=== PATIENT | female | born 1955 | race African-American/Black ===

== ENCOUNTER 2017-02-24 11:59 | Emergency (ER) | payer OTHER ==
[~2017-02-24] VITALS: Ht 162.6 cm; Wt 75.0 kg
[~2017-02-24 11:59] MED LIST: DIVA500T PO
[2017-02-24 12:01] VITALS: BP 129/76
== END 2017-02-24 12:53 | disposition left against medical advice (07) ==
LOC: ER 12:48
DX: R41.82 Altered mental status, unspecified (principal); Z53.21 Procedure and treatment not carried out due to patient leaving prior to being seen by health care provider

== ENCOUNTER 2018-10-17 21:26 | Inpatient (IN) | payer BC, OTHER ==
[~2018-10-17] VITALS: Ht 160 cm; Wt 73.5 kg
[~2018-10-17 21:26] MED LIST changes: +DIVA-75 PO; -DIVA500T PO
[2018-10-17] MEDS ORDERED: LORAZEPAM 2MG/ML CPJ IV ONE ×2 (21:45→23:15)
[2018-10-17 22:00] LABS: BASOPHILS % 1.1 % (0.0-2.0); EOSINOPHILS % 0.4 % (0.0-5.0); HEMATOCRIT. 37.3 % (36.0-48.0); HEMOGLOBIN. 12.2 g/dL (12.0-16.0); LYMPHOCYTES % 38.1 % (20.0-50.0); MEAN CORPUSCULAR HEMOGLOBIN 29.7 pg (28.0-32.0); MEAN CORPUSCULAR VOLUME 90.4 fL (81.0-99.0); MEAN PLATELET VOLUME 8.3 fl (7.4-10.4); MONOCYTES % 9.4 % (2.0-8.0); PLATELET 240 x1000/uL (130-400); RED BLOOD CELL COUNT 4.12 mill/uL (4.2-5.4); RED CELL DISTRIBUTION WIDTH 14.3 % (11.6-14.6)
[2018-10-17 22:05] LABS: CHLORIDE 104 mEq/L (98-107)
[2018-10-17 22:10] LABS: ETHANOL BLOOD < 10 mg/dL
[2018-10-17 22:16] LABS: CARBAMAZEPINE < 0.5 ug/mL (4-12)
[2018-10-17 22:46] LABS: CLARITY URINE CLEAR (CLEAR); COLOR URINE YELLOW (YELLOW); KETONES URINE 1+ (NEGATIVE); LEUKOCYTE ESTERASE URINE NEGATIVE (NEGATIVE); NITRITE URINE NEGATIVE (NEGATIVE); OCCULT BLOOD URINE NEGATIVE (NEGATIVE); PH URINE 6.5 (4.5-8.0); PROTEIN URINE NEGATIVE (NEGATIVE); SPECIFIC GRAVITY URINE 1.019 (1.005-1.030)
[2018-10-17 22:55] LABS: *AMPHETAMINES SCREEN URINE NEGATIVE (NEGATIVE); *BARBITURATES SCREEN URINE NEGATIVE (NEGATIVE); *BENZODIAZEPINES SCREEN URINE NEGATIVE (NEGATIVE); *COCAINE SCREEN URINE NEGATIVE (NEGATIVE); METHADONE URINE SCREEN NEGATIVE (NEGATIVE); OPIATES URINE SCREEN NEGATIVE (NEGATIVE); PHENCYCLIDINE URINE SCREEN NEGATIVE (NEGATIVE)
[2018-10-17 22:56] LABS: CANNABINOID URINE SCREEN NEGATIVE (NEGATIVE)
[2018-10-18] MEDS ORDERED: IPRATROPIUM/ALBUTEROL 0.5-3(2.5)MG/3ML NEB NEB PRN (05:15)
[2018-10-18] MEDS ORDERED: HYDROCODONE/ACETAMINOPHEN 5/325MG TABLET PO PRN (05:15)
[2018-10-18] MEDS ORDERED: LORAZEPAM 2MG/ML CPJ IV PRN (05:15)
[2018-10-18] MEDS ORDERED: ONDANSETRON HCL 4MG/2ML INJ IV PRN (05:15)
[2018-10-18] MEDS ORDERED: CLONIDINE 0.1MG TABLET PO PRN (05:15)
[2018-10-18] MEDS ORDERED: MAGNESIUM/ALUMINUM HYDROXIDE/SIMETHICONE 30ML UDC PO PRN (05:15)
[2018-10-18] MEDS ORDERED: GUAIFENESIN 200MG/10ML SUGAR FREE UDC PO PRN (05:15)
[2018-10-18] MEDS ORDERED: ACETAMINOPHEN 325MG TABLET PO PRN (05:15)
[2018-10-18] MEDS ORDERED: DIPHENHYDRAMINE 50MG/ML VIAL IV PRN (05:15)
[2018-10-18] MEDS ORDERED: MORPHINE SULFATE 2 MG/ML CPJ (NOT FOR IM USE) IV PRN (05:15)
[2018-10-18] MEDS ORDERED: NA PHOS,M-B/NA PHOS,DI-BA ENEMA 118ML PR PRN (05:15)
[2018-10-18] MEDS ORDERED: DOCUSATE SODIUM 100MG CAPSULE PO PRN (05:15)
[2018-10-18 05:57] LABS: CHLORIDE 105 mEq/L (98-107)
[2018-10-18 09:40] VITALS: BP 121/62
[2018-10-18] MEDS: ENOXAPARIN 40MG/0.4ML SYR SUBCUT SCH (10:00)
[2018-10-18 12:00] VITALS: BP 155/74
[2018-10-18 16:00] VITALS: BP 162/87
[2018-10-18 20:00] VITALS: BP 141/76
[2018-10-18] MEDS ORDERED: FOLIC ACID 1 MG, THIAMINE HCL 100 MG, MVI, ADULT NO.1 10 ML in DEXTROSE 5% WATER 1,000 ML IV SCH ×4 (21:30)
[2018-10-18] MEDS: VALPROIC ACID 250MG CAPSULE PO SCH (22:55)
[2018-10-19] VITALS: BP 133/74
[2018-10-19 04:00] VITALS: BP 162/67
[2018-10-19] MEDS: VALPROIC ACID 250MG CAPSULE PO SCH ×3 (06:34→21:46)
[2018-10-19 07:32] LABS: BASOPHILS % 0.6 % (0.0-2.0); HEMATOCRIT. 37.8 % (36.0-48.0); HEMOGLOBIN. 12.2 g/dL (12.0-16.0); LYMPHOCYTES % 41.3 % (20.0-50.0); MEAN CORPUSCULAR HEMOGLOBIN 29.5 pg (28.0-32.0); MEAN PLATELET VOLUME 8.6 fl (7.4-10.4); MONOCYTES % 7.6 % (2.0-8.0); NEUTROPHILS % 49.5 % (40.0-76.0); PLATELET 217 x1000/uL (130-400); RED BLOOD CELL COUNT 4.15 mill/uL (4.2-5.4); RED CELL DISTRIBUTION WIDTH 14.1 % (11.6-14.6)
[2018-10-19 07:36] LABS: CHLORIDE 105 mEq/L (98-107)
[2018-10-19 07:48] LABS: T4 FREE 1.01 ng/dL (0.76-1.46)
[2018-10-19 07:49] LABS: HDL CHOLESTEROL 66 mg/dL (40-59); LDL CHOLESTEROL 76 mg/dL (5-100)
[2018-10-19] MEDS: ENOXAPARIN 40MG/0.4ML SYR SUBCUT SCH (09:54)
[2018-10-19 12:00] VITALS: BP 138/82
[2018-10-19 16:10] VITALS: BP 139/72
[2018-10-19 20:00] VITALS: BP 157/67
[2018-10-20 00:36] VITALS: BP 134/68
[2018-10-20 04:00] VITALS: BP 135/73
[2018-10-20] MEDS: VALPROIC ACID 250MG CAPSULE PO SCH ×2 (06:28→14:30)
[2018-10-20 08:00] VITALS: BP 131/69
[2018-10-20] MEDS: ENOXAPARIN 40MG/0.4ML SYR SUBCUT SCH (09:07)
[2018-10-20 12:00] VITALS: BP 130/73
[2018-10-20 14:11] VITALS: BP 130/73
== END 2018-10-20 15:27 | disposition home or self-care (01) | DRG 101 ==
LOC: ER 22:25 → EDBEDREQ 23:15 → 5WST 10-18 02:12 → EDBEDREQ 10-18 02:15 → EDBEDREQTM 10-18 02:15 → EDBEDREQDT 10-18 02:15 → ENRESERV 10-18 08:52
PROVIDERS: ADMIT Internal Medicine; ATTEND Internal Medicine
DX: G40.89 Other seizures (principal); E86.0 Dehydration; F10.20 Alcohol dependence, uncomplicated; I10 Essential (primary) hypertension; Z91.19 Patient's noncompliance with other medical treatment and regimen; I69.398 Other sequelae of cerebral infarction; Z79.899 Other long term (current) drug therapy; Z88.6 Allergy status to analgesic agent
CPT/HCPCS: 36415; 80048; 80061; 80076; 80156; 80165; 80185; 80305; 80320; 81003; 82248; 82962; 84439; 84443; 84484; 93005; 96374; 96376; 99285; J1650; J2060; J3411; J3490; J7070; G0480